=== PATIENT | male | born 1980 | race Caucasian/White ===

== ENCOUNTER 2019-06-21 21:47 | Emergency (ER) | payer SELFPAY ==
[~2019-06-21] VITALS: Ht 185.4 cm; Wt 113.4 kg
[2019-06-21 21:55] VITALS: BP 148/90
--- NOTE | 2019-06-21 22:00 | NUR ---
TO LOBBY A/W BED, AMBULATORY
--- NOTE | 2019-06-21 22:37 | NUR ---
PT AMBULATED TO BED 04
--- NOTE | 2019-06-21 22:40 | NUR ---
38Y MALE PRESENTED TO EC C/O LT SIDED CHEST PAIN THAT RADIATE TO BACK AND LT ARM NUMBNESS [id number]. PT ALSO C/O SOB. NO N/V/BLURRY VISION, DENIES FEVER/CHILLS. PT AAOX4, GCS15, RR EVEN UNLABORED. EDMD MADE AWARE, WILL CONTINUE TO MONITOR CLOSELY. BED LOCKED IN LOWEST POSITION, SIDERAILS UPX1.
[2019-06-21] MEDS ORDERED: ASPIRIN 81 MG TAB.CHEW PO ONE (22:45)
[2019-06-21] MEDS ORDERED: NACL 0.9% 500 ML IV ONE (22:45)
[2019-06-21] MEDS ORDERED: KETOROLAC 30 MG/ML VIAL IVP ONE (23:10)
[2019-06-21 23:22] LABS: BASOPHILS # (AUTO) 0.1 K/uL (0.00-0.22); BASOPHILS % (AUTO) 1.2 % (0.0-2.0); EOSINOPHILS # (AUTO) 0.1 K/uL (0-0.4); EOSINOPHILS % (AUTO) 0.8 % (0.0-4.0); HEMATOCRIT 44.2 % (36-52); LYMPHOCYTES # (AUTO) 2.9 K/uL (2.0-11.5); LYMPHOCYTES % (AUTO) 28.2 % (20.5-51.1); MEAN CORPUSCULAR HEMOGLOBIN 31 pg (27-31); MEAN CORPUSCULAR HGB CONC 34 g/dL (33-37); MEAN CORPUSCULAR VOLUME 90.6 fL (80-94); MONOCYTES # (AUTO) 0.6 K/uL (0.8-1.0); MONOCYTES % (AUTO) 5.5 % (1.7-9.3); NEUTROPHILS # (AUTO) 6.6 K/uL (1.8-7.7); NEUTROPHILS % (AUTO) 64.3 % (42.2-75.2); PLATELET COUNT (AUTO) 293 K/uL (140-450); RED BLOOD CELL COUNT(AUTO) 4.87 MIL/uL (4.20-6.10); RED CELL DISTRIBUTION WIDTH 12.7 % (11.6-13.7); WHITE BLOOD COUNT (AUTO) 10.3 K/uL (4.8-10.8)
[2019-06-21 23:36] LABS: ANION GAP 18.6 (8-16); CARBON DIOXIDE 23.1 mmol/L (21-32); CREATININE 1.2 mg/dL (0.7-1.3); POTASSIUM 3.7 mmol/L (3.5-5.1)
[2019-06-21 23:43] LABS: PROTHROMBIN TIME 9.9 secs (10.8-13.4)
[2019-06-21 23:45] LABS: ALBUMIN 4.1 g/dL (3.4-5.0); TOTAL BILIRUBIN 0.3 mg/dL (0.0-1.0)
--- NOTE | 2019-06-22 00:30 | NUR ---
PT IN BED RESTING, VSS AT THIS TIME.
[2019-06-22 01:13] VITALS: BP 117/76
== END 2019-06-22 01:13 | disposition home or self-care (01) ==
LOC: MED 21:47
DX: R07.89 Other chest pain (principal); R06.02 Shortness of breath; R20.0 Anesthesia of skin; F12.90 Cannabis use, unspecified, uncomplicated
CPT/HCPCS: 36415; 71045; 80053; 85025; 85610; 93005; 96374; 99284; J1885; J7030